=== PATIENT | male | born 1975 | race African-American/Black ===

== ENCOUNTER 2018-10-16 16:52 | Inpatient (IN) | payer MEDICAID, OTHER ==
[~2018-10-16] VITALS: Ht 175.3 cm; Wt 81.8 kg
[2018-10-16] MEDS ORDERED: DIPHTH/TET/ACEL PERTUSS (ADULT) 0.5 ML VIAL IM* ONE (17:00)
--- NOTE | 2018-10-16 17:45 | ERD ---
ER Documentation Chief Complaint Chief Complaint BIBA/LAPD; C/O suspected drug abuse/pt aggitated tased x2 versed 5mg given HPI 34-year-old unidentified male presents via EMS and police officers. It appears the patient was at a homeless encampment being verbally aggressive and threatening. When the police arrived he became aggressive and threatening towards them. A taser was discharged and the patient was extremely agitated re quiring Versed via EMS. Upon arrival the patient is sleeping. There is no report that the patient was yelling suicidal homicidal threats. Remainder of HPI is very limited. No report of trauma. ROS Altered mental status Medications Home Meds Unable to Obtain Active Prescriptions or Reported Meds Allergies Allergies: Coded Allergies: Unknown: Unable to obtain (Unverified , 10/16/18) PMhx/Soc Medical and Surgical Hx: Unable to obtain Hx Alcohol Use: No (UNK) Hx Substance Use: No (UNK) Hx Tobacco Use: No (UNK) Smoking Status: Unknown if ever smoked FmHx Family History: No diabetes Physical Exam Vitals Vital Signs Date Temp Pulse Resp B/P (MAP) Pulse Ox O2 O2 Flow FiO2 Time Delivery Rate 10/16/18 98.3 70 20 120/88 100 Room Air 20:02 (99) 10/16/18 98.9 101 20 127/89 95 17:03 (102) Physical Exam General: Disheveled, sleeping, protecting airway Head: Normocephalic, atraumatic. Eyes: Pupils equally reactive, EOM intact ENT: Moist mucous membranes Neck: Supple, no lymphadenopathy Respiratory: Lungs clear bilaterally, no distress Cardiovascular: RRR, no murmurs, rubs, or gallops Abdominal: Soft, non-tender, non-distended, no peritoneal signs : Deferred MSK: No edema, no unilateral swelling, small abrasion to the right elbow but no bony abnormality is or tenderness. Full passive range of motion Neurologic: Responsive to painful stimuli, moving all extremities. Limited exam. Skin: Small abrasion noted to the right elbow. There is a taser sheldon in the left mid thoracic back left of midline. There is a small second taser sheldon to the left superior gluteus area but stuck in the patient's close not in the skin. Psych: Unable to assess Result Diagram: 10/16/18 1706 10/16/18 1706 Results 24 hrs Laboratory Tests Test 1/25/19 17:06 White Blood Count 7.6 10^3/ul Red Blood Count 4.21 10^6/ul Hemoglobin 12.9 g/dl Hematocrit 39.4 % Mean Corpuscular Volume 93.6 fl Mean Corpuscular Hemoglobin 30.6 pg Mean Corpuscular Hemoglobin Concent 32.7 g/dl Red Cell Distribution Width 12.1 % Platelet Count 292 10^3/UL Mean Platelet Volume 9.5 fl Immature Granulocytes % 0.100 % Neutrophils % 55.3 % Lymphocytes % 26.0 % Monocytes % 8.5 % Eosinophils % 9.2 % Basophils % 0.9 % Nucleated Red Blood Cells % 0.0 /100WBC Immature Granulocytes # 0.010 10^3/ul Neutrophils # 4.2 10^3/ul Lymphocytes # 2.0 10^3/ul Monocytes # 0.7 10^3/ul Eosinophils # 0.7 10^3/ul Basophils # 0.1 10^3/ul Nucleated Red Blood Cells # 0.0 10^3/ul Sodium Level 144 mmol/L Potassium Level 4.0 mmol/L Chloride Level 108 mmol/L Carbon Dioxide Level 24 mmol/L Anion Gap 12 Blood Urea Nitrogen 19 mg/dl Creatinine 1.06 mg/dl Est Glomerular Filtrat Rate mL/min > 60 mL/min Glucose Level 88 mg/dl Calcium Level 9.2 mg/dl Total Bilirubin 0.4 mg/dl Direct Bilirubin 0.00 mg/dl Indirect Bilirubin 0.4 mg/dl Aspartate Amino Transf (AST/SGOT) 83 IU/L Alanine Aminotransferase (ALT/SGPT) 58 IU/L Alkaline Phosphatase 106 IU/L Creatine Kinase 4138 IU/L Total Protein 7.6 g/dl Albumin 4.4 g/dl Globulin 3.20 g/dl Albumin/Globulin Ratio 1.37 Ethyl Alcohol Level < 10.0 mg/dl Current Medications Medications Dose Sig/Nicolas Start Time Status Last (Trade) Ordered Route PRN Stop Time Admin Dose Reason Admin Diphtheria/ 0.5 ml ONCE ONCE 10/16/18 DC Tetanus/Acell IM* 17:00 Pertussis 10/16/18 17:01 (Adacel) Haloperidol 5 mg ONCE ONCE 10/16/18 DC 10/16/18 (Haldol) IM 20:00 19:44 10/16/18 20:01 Lorazepam 1 mg ONCE ONCE 10/16/18 DC 10/16/18 (Ativan) IM 20:00 19:44 10/16/18 20:01 Sodium 1,000 ml @ Q1H STAT 10/16/18 DC 10/16/18 Chloride 1,000 mls/hr IV 19:50 20:00 10/16/18 20:49 Ondansetron 4 mg BRIDGE ORDER 10/16/18 HCl (Zofran PRN IV 20:30 Inj) NAUSEA/VOMITI 10/17/18 20:29 NG 650 mg ER BRIDGE 10/16/18 Acetaminophen PRN PO 20:30 (Tylenol .MILD PAIN 10/17/18 20:29 Tab) 1-3 OR TEMP Sodium 1,000 ml @ Q6H40M IV 10/16/18 10/16/18 Chloride 150 mls/hr 20:25 21:20 IV Flush 3 ml PER 10/16/18 (NS 3 ml) PROTOCOL IV 20:30 Ondansetron 4 mg Q6H PRN 10/16/18 HCl (Zofran IV 20:30 Inj) NAUSEA/VOMITI NG 650 mg Q6H PRN 10/16/18 Acetaminophen PO .PAIN 1-3 20:30 (Tylenol OR TEMP Tab) Docusate 100 mg Q12H PRN 10/16/18 Sodium PO 20:30 (Colace) .CONSTIPATION Bisacodyl 5 mg DAILY PRN 10/16/18 (Dulcolax) PO 20:30 .CONSTIPATION Enoxaparin 30 mg Q24H SC 10/16/18 Sodium 21:00 (Lovenox) Lorazepam 1 mg Q2H PRN 10/16/18 (Ativan) IV 20:30 AGITATION/ANX IETY Procedures/MDM EKG, MONITORS, & DIAGNOSTIC IMAGING: EKG: I reviewed and interpreted a 12-lead EKG. Rhythm: Sinus tachycardia ST Changes: No contiguous ST segment elevations T waves: No contiguous T wave inversions Impression: No evidence of acute cardiac ischemia CT brain: No acute process per radiologist read PROCEDURES: Foreign Body Removal by me: Location: Left thoracic flank and left superior b uttock clothing Anesthesia: None required Technique: Traction was able to completely remove the taser barbs intact. No evidence of retained foreign body Complications: Neurovascularly intact post procedure Restrains: Indication: Agitation, danger to self and others Location: 4 point restraints to bilateral upper and lower extremities The patient was given verbal warnings that if the behavior continued the patient would require physical and/or chemical restraints. Despite verbal warnings the behavior continued and restraints were applied. The patient had a bedside reevaluation within 50 minutes of placement of restraints. Patient remained stable. LAB INTERPRETATION: * The patient's laboratory testing shows evidence of acute rhabdomyolysis. No evidence of renal involvement at this time. Patient will require IV fluids and admission. MEDICAL DECISION MAKING: The patient presents with acute agitation. High suspicion for likely sympathomimetic polysubstance abuse. Patient received benzodiazepine prior to arrival. He is protecting his airway. Low concern for Taser injury. The bars were removed, intact. Tetanus will be updated. Because the patient is still sleepy laboratory testing and CT imaging would be appropriate. Low concern for clinically significant traumatic brain injury. The police have released the patient from custody. The patient will require reassessment once more awake. At this time no signs or symptoms concerning for acute psychosis again likely secondary to toxicologic process such as metham phetamine ingestion. ER COURSE: * Upon arrival the patient was placed in four-point restraints as documented above. He is protecting his airway. * Taser barbs removed as documented above * Labs c/w rhabdomyolysis. IV fluids administered. Patient will be admitted. * Patient did require a dose of Haldol and Ativan because of agitation. CONSULTATION: None DISPOSITION PLAN: Accepting care team and consultations: I discussed the current laboratory data, diagnostic imaging and emergency care provided. Admitting team: Dr. Stover Admitting team indication: Insurance directed Departure Diagnosis: Primary Impression: Rhabdomyolysis Rhabdomyolysis type: non-traumatic Qualified Codes: M62.82 - Rhabdomyolysis Additional Impressions: Polysubstance abuse Agitation Condition: Stable JORDY SOTO MD Oct 16, 2018 17:45
[2018-10-16] MEDS ORDERED: SOD CHLORIDE 0.9% 1,000 ML IV STA (19:50)
[2018-10-16] MEDS ORDERED: HALOPERIDOL 5 MG INJ IM ONE (20:00)
[2018-10-16] MEDS ORDERED: LORAZEPAM 2 MG INJ IM ONE (20:00)
[2018-10-16] MEDS ORDERED: LORAZEPAM 2 MG INJ IV PRN (20:30)
[2018-10-16] MEDS ORDERED: DOCUSATE SODIUM 100 MG CAP PO PRN (20:30)
[2018-10-16] MEDS ORDERED: NACL 0.9% 3 ML SYG IV SCH (20:30)
[2018-10-16] MEDS ORDERED: BISACODYL (EC) 5 MG TAB PO PRN (20:30)
[2018-10-16] MEDS ORDERED: ONDANSETRON 4 MG INJ IV PRN ×2 (20:30)
[2018-10-16] MEDS ORDERED: ACETAMINOPHEN 325 MG TAB PO PRN ×2 (20:30)
--- NOTE | 2018-10-16 20:32 | HP ---
Date/Time of Note Date/Time of Note DATE: 10/16/18 TIME: 20:32 Assessment/Plan VTE Prophylaxis Pharmacological prophylaxis: LMWH Lines/Catheters IV [facility] Saline Lock Assessment/Plan Hospital Course This is a 34-year-old [facility]: #1 acute encephalopathy: Likely multifactorial secondary to suspected drug use, and secondary to being tased and giving sedatives. At the current time will monitor patient closely. Will avoid any further sedative medications at this time, however given patient's possible history of drug use if patient is noted to be aggressive or agitated upon awakening will need to consider Ativan/Haldol. Ethanol level less than 10, will await urine drug screen result. assessment services manager consult. SW #2 rhabdomyolysis: Etiology possibly secondary to being tased and possible drug use. Patient's blood alcohol level is less than 10. Will provide aggressive IV fluid hydration with normal saline. Monitor CK levels. Kidney function at the current time appears normal. Will repeat renal function test in the a.m. #3 DVT GI prophylaxis: Lovenox, no GI prophylaxis indicated Further treatment strategy will be implemented as per clinical course. Result Diagram: 10/16/18 1706 10/16/18 1706 Results 24hrs Laboratory Tests Test 10/16/18 17:06 White Blood Count 7.6 Red Blood Count 4.21 L Hemoglobin 12.9 L Hematocrit 39.4 L Mean Corpuscular Volume 93.6 Mean Corpuscular Hemoglobin 30.6 Mean Corpuscular Hemoglobin Concent 32.7 Red Cell Distribution Width 12.1 Platelet Count 292 Mean Platelet Volume 9.5 Immature Granulocytes % 0.100 Neutrophils % 55.3 Lymphocytes % 26.0 Monocytes % 8.5 Eosinophils % 9.2 H Basophils % 0.9 Nucleated Red Blood Cells % 0.0 Immature Granulocytes # 0.010 Neutrophils # 4.2 Lymphocytes # 2.0 Monocytes # 0.7 Eosinophils # 0.7 H Basophils # 0.1 Nucleated Red Blood Cells # 0.0 Sodium Level 144 Potassium Level 4.0 Chloride Level 108 Carbon Dioxide Level 24 Anion Gap 12 Blood Urea Nitrogen 19 Creatinine 1.06 Est Glomerular Filtrat Rate mL/min > 60 Glucose Level 88 Calcium Level 9.2 Total Bilirubin 0.4 Direct Bilirubin 0.00 Indirect Bilirubin 0.4 Aspartate Amino Transf (AST/SGOT) 83 H Alanine Aminotransferase (ALT/SGPT) 58 Alkaline Phosphatase 106 Creatine Kinase 4138 H Total Protein 7.6 Albumin 4.4 Globulin 3.20 Albumin/Globulin Ratio 1.37 Ethyl Alcohol Level < 10.0 H HPI/ROS Admit Date/Time Admit Date/Time Hx of Present Illness BIBA/LAPD; C/O suspected drug abuse/pt aggitated tased x2 versed 5mg given The following history was obtained from the ED physician documentation as patient was sedated when I evaluated the patient. Patient apparently is a homeless male who was being verbally aggressive and threatening at the homeless retirement apparently that he was at. [employer] and EMS were responding to the situation and patient was tasered and patient was extremely agitated and he required Versed via the EMS. When he arrived to the emergency department he was sleeping. There was not reports of any suicidal or homicidal threats. It was suspected that the patient likely was under the influence of drugs. Upon my ex amination the patient at the bedside the patient was still sedated but in no distress. Further history Allergies: Unknown, unable to obtain secondary to patient being sedated Medications:Unknown, unable to obtain secondary to patient being sedated ROS Subjective hx not possible: other (Unknown, unable to obtain secondary to patient being sedated) PMH/Family/Social Past Medical History Unknown, unable to obtain secondary to patient being sedated Medications Current Medications Sodium Chloride 1,000 ml @ 1,000 mls/hr Q1H STAT IV Last administered on 10/16/18at 20:00; Admin Dose 1,000 MLS/HR; Start 10/16/18 at 19:50; Stop 10/16/18 at 20:49 Ondansetron HCl (Zofran Inj) 4 mg BRIDGE ORDER PRN IV NAUSEA/VOMITING; Start 10/16/18 at 20:30; Stop 10/17/18 at 20:29 Acetaminophen (Tylenol Tab) 650 mg ER BRIDGE PRN PO .MILD PAIN 1-3 OR TEMP; Start 10/16/18 at 20:30; Stop 10/17/18 at 20:29 Sodium Chloride 1,000 ml @ 150 mls/hr Q6H40M IV ; Start 10/16/18 at 20:25; Status UNV IV Flush (NS 3 ml) 3 ml PER PROTOCOL IV ; Start 10/16/18 at 20:30; Status UNV Ondansetron HCl (Zofran Inj) 4 mg Q6H PRN IV NAUSEA/VOMITING; Start 10/16/18 at 20:30; Status UNV Acetaminophen (Tylenol Tab) 650 mg Q6H PRN PO .PAIN 1-3 OR TEMP; Start 10/16/18 at 20:30; Status UNV Docusate Sodium (Colace) 100 mg Q12H PRN PO .CONSTIPATION; Start 10/16/18 at 20:30; Status UNV Bisacodyl (Dulcolax) 5 mg DAILY PRN PO .CONSTIPATION; Start 10/16/18 at 20:30; Status UNV Enoxaparin Sodium (Lovenox) 30 mg DAILY SC ; Start 10/16/18 at 20:30; Status UNV Lorazepam (Ativan) 1 mg Q2H PRN IV AGITATION/ANXIETY; Start 10/16/18 at 20:30; Status UNV Coded Allergies: Unknown: Unable to obtain (Unverified , 10/16/18) Past Surgical History Unknown, unable to obtain secondary to patient being sedated Family History Significant Family History: other (Unknown, unable to obtain secondary to patient being sedated) Social History Unknown, unable to obtain secondary to patient being sedated Smoking Status: Unknown if ever smoked Exam/Review of Systems Vital Signs Vitals Vital Signs Date Temp Pulse Resp B/P (MAP) Pulse Ox O2 O2 Flow FiO2 Time Delivery Rate 10/16/18 98.3 70 20 120/88 100 Room Air 20:02 (99) Exam Exam General: Patient is currently sedated, sleeping does not appear to be in any acute distress HEENT: Atraumatic, normocephalic. The pupils are equal, round and reactive. Extraocular motor are intact Neck: Supple with full range of motion. No rigidity or meningismus Chest: Nontender Lungs: Clear to auscultation bilaterally no crackles rales or wheezing Heart: Normal S1-S2, Regular rhythm and rate. No overt murmurs appreciated auscultation Abdomen: Soft , nontender, nondistended , bowel sounds are present. No guarding no rebound tenderness , No masses or organomegaly. No costovertebral temporal angle mass Extremities: Normal to inspection, no edema no cyanosis Neurologic: Currently sedated after being tased and given Versed, neurological exam severely limited given his sedation. DOTTIE PARADA Oct 16, 2018 20:32
[2018-10-16] MEDS: ENOXAPARIN 30 MG/0.3 ML SYG SC SCH (21:00)
[2018-10-16] MEDS: SOD CHLORIDE 0.9% 1,000 ML IV SCH (21:20)
[2018-10-16 23:09] VITALS: BP 121/62; PULSE 78; RESP 20
--- NOTE | 2018-10-16 23:21 | NUR ---
Pt arrived on unit at 2300 via gurney. Pt sleeping and difficult to arouse. Pt has harjeetet, counted money with RN, Ty. Unable to obtain any information from pt. VSS.
[2018-10-17 01:10] VITALS: Ht 175.3 cm; Wt 81.8 kg
[2018-10-17 01:50] VITALS: BP 123/73; PULSE 83; RESP 20
[2018-10-17] MEDS: SOD CHLORIDE 0.9% 1,000 ML IV SCH ×7 (03:05→23:05)
--- NOTE | 2018-10-17 05:54 | NUR ---
EOSS Pt remained asleep and difficult to wake. Unable to assess. IVF maintained. Hourly rounding done. Bed left in lowest position with bed alarm on. Call light left within reach. Will endorse to next shift.
[2018-10-17 08:00] VITALS: BP 115/79; PULSE 68; RESP 18
--- NOTE | 2018-10-17 11:09 | NUR ---
Noted that patient just woke up. During handoff, previous nurse mentioned he was given Versed in ER and patient has been sleeping since 11pm. No assessments done due to pt's current status. Introduced myself and Annalee mariee RN. I went to go get water for the patient and when I came back, pt was not in his room. Notified security. Knocked on the visitors restroom, I asked "Are you a patient?" Pt said yes and after a few minutes, he went back to his room. probably unaware where his restroom is. Pt aware of his name, date of and where he is right now (in a hospital) but he said he does not know WHY he is here. Oriented pt to bed alarm, call light. Instructed pt to call for assistance. Made sure I'm coming in with another person for safety purposes. When asked what was the last thing pt remembers, he said "Somebody called the police." Pt put his name on a paper.
[2018-10-17 14:00] VITALS: BP 115/71; PULSE 62; RESP 16
--- NOTE | 2018-10-17 14:43 | PN ---
Date/Time of Note Date/Time of Note DATE: 10/17/18 TIME: 14:40 Assessment/Plan VTE Prophylaxis SCD applied (from Nsg): Yes Pharmacological prophylaxis: LMWH Lines/Catheters IV Catheter Type (from Nrsg): Peripheral IV Assessment/Plan Assessment/Plan 34 yo homeless man admitted after altercation with the police. # acute encephalopathy: Likely multifactorial secondary to suspected drug use, and secondary to being tased and giving sedatives. At the current time will monitor patient closely. Will avoid any further sedative medications at this time, however given patient's possible history of drug use if patient is noted to be aggressive or agitated upon awakening will need to consider Ativan/Haldol. Ethanol level less than 10, will await urine drug screen result. nutritional services cook consult. SW # rhabdomyolysis: Etiology possibly secondary to being tased and possible drug use. Patient's blood alcohol level is less than 10. Will provide aggressive IV fluid hydration with normal saline. Monitor CK levels. Kidney function at the current time appears normal. Renal function improving. # DVT GI prophylaxis: Lovenox, no GI prophylaxis indicated Result Diagram: 10/17/18 0648 10/17/18 0648 Results 24hrs Laboratory Tests Test 10/16/18 17:06 10/17/18 06:48 White Blood Count 7.6 5.8 # Red Blood Count 4.21 L 4.24 L Hemoglobin 12.9 L 12.9 L Hematocrit 39.4 L 40.2 L Mean Corpuscular Volume 93.6 94.8 Mean Corpuscular Hemoglobin 30.6 30.4 Mean Corpuscular Hemoglobin Concent 32.7 32.1 Red Cell Distribution Width 12.1 12.4 Platelet Count 292 269 Mean Platelet Volume 9.5 9.3 Immature Granulocytes % 0.100 0.200 Neutrophils % 55.3 50.0 Lymphocytes % 26.0 27.5 Monocytes % 8.5 7.3 Eosinophils % 9.2 H 14.1 H Basophils % 0.9 0.9 Nucleated Red Blood Cells % 0.0 0.0 Immature Granulocytes # 0.010 0.010 Neutrophils # 4.2 2.9 Lymphocytes # 2.0 1.6 Monocytes # 0.7 0.4 Eosinophils # 0.7 H 0.8 H Basophils # 0.1 0.1 Nucleated Red Blood Cells # 0.0 0.0 Sodium Level 144 142 Potassium Level 4.0 4.0 Chloride Level 108 111 H Carbon Dioxide Level 24 25 Anion Gap 12 6 Blood Urea Nitrogen 19 16 Creatinine 1.06 0.93 Est Glomerular Filtrat Rate mL/min > 60 > 60 Glucose Level 88 75 Calcium Level 9.2 8.6 Total Bilirubin 0.4 1.1 Direct Bilirubin 0.00 0.00 Indirect Bilirubin 0.4 1.1 Aspartate Amino Transf (AST/SGOT) 83 H 76 H Alanine Aminotransferase (ALT/SGPT) 58 52 Alkaline Phosphatase 106 94 Creatine Kinase 4138 H 2782 H Total Protein 7.6 6.5 # Albumin 4.4 3.7 Globulin 3.20 2.80 Albumin/Globulin Ratio 1.37 1.32 Ethyl Alcohol Level < 10.0 H Hemoglobin A1c 5.2 Magnesium Level 2.2 Triglycerides Level 44 Cholesterol Level 164 LDL Cholesterol, Calculated 86 HDL Cholesterol 69 H Cholesterol/HDL Ratio 2.3 Thyroid Stimulating Hormone (TSH) 0.159 L Subjective 24 Hr Interval Summary Free Text/Dictation No acute overnight events. Patient ambulated to restroom today. Says his name is Arias Arreaga, oriented to location, year, month. Still very lethargic and somnolent. Exam/Review of Systems Exam Vitals Vital Signs Date Temp Pulse Resp B/P (MAP) Pulse Ox O2 O2 Flow FiO2 Time Delivery Rate 10/17/18 97.9 68 18 115/79 98 08:00 (91) 10/16/18 Room Air 22:42 Exam General: Well developed man sleeping comfortably in bed. HEENT: Atraumatic, normocephalic. No scleral icterus or erythema. Neck: Supple with full range of motion. No rigidity or meningismus Chest: Nontender Lungs: Clear to auscultation bilaterally no crackles rales or wheezing Heart: Normal S1-S2, Regular rhythm and rate. No overt murmurs appreciated auscultation Abdomen: Soft , nontender, nondistended Extremities: Normal to inspection, no edema no cyanosis Neurologic: Lethargic. But arousable and oriented to name (although unable to verify), location, year, month Results Results 24hrs Laboratory Tests Test 10/16/18 17:06 10/17/18 06:48 White Blood Count 7.6 5.8 # Red Blood Count 4.21 L 4.24 L Hemoglobin 12.9 L 12.9 L Hematocrit 39.4 L 40.2 L Mean Corpuscular Volume 93.6 94.8 Mean Corpuscular Hemoglobin 30.6 30.4 Mean Corpuscular Hemoglobin Concent 32.7 32.1 Red Cell Distribution Width 12.1 12.4 Platelet Count 292 269 Mean Platelet Volume 9.5 9.3 Immature Granulocytes % 0.100 0.200 Neutrophils % 55.3 50.0 Lymphocytes % 26.0 27.5 Monocytes % 8.5 7.3 Eosinophils % 9.2 H 14.1 H Basophils % 0.9 0.9 Nucleated Red Blood Cells % 0.0 0.0 Immature Granulocytes # 0.010 0.010 Neutrophils # 4.2 2.9 Lymphocytes # 2.0 1.6 Monocytes # 0.7 0.4 Eosinophils # 0.7 H 0.8 H Basophils # 0.1 0.1 Nucleated Red Blood Cells # 0.0 0.0 Sodium Level 144 142 Potassium Level 4.0 4.0 Chloride Level 108 111 H Carbon Dioxide Level 24 25 Anion Gap 12 6 Blood Urea Nitrogen 19 16 Creatinine 1.06 0.93 Est Glomerular Filtrat Rate mL/min > 60 > 60 Glucose Level 88 75 Calcium Level 9.2 8.6 Total Bilirubin 0.4 1.1 Direct Bilirubin 0.00 0.00 Indirect Bilirubin 0.4 1.1 Aspartate Amino Transf (AST/SGOT) 83 H 76 H Alanine Aminotransferase (ALT/SGPT) 58 52 Alkaline Phosphatase 106 94 Creatine Kinase 4138 H 2782 H Total Protein 7.6 6.5 # Albumin 4.4 3.7 Globulin 3.20 2.80 Albumin/Globulin Ratio 1.37 1.32 Ethyl Alcohol Level < 10.0 H Hemoglobin A1c 5.2 Magnesium Level 2.2 Triglycerides Level 44 Cholesterol Level 164 LDL Cholesterol, Calculated 86 HDL Cholesterol 69 H Cholesterol/HDL Ratio 2.3 Thyroid Stimulating Hormone (TSH) 0.159 L Medications Medication Current Medications Ondansetron HCl (Zofran Inj) 4 mg BRIDGE ORDER PRN IV NAUSEA/VOMITING; Start 10/16/18 at 20:30; Stop 10/17/18 at 20:29 Acetaminophen (Tylenol Tab) 650 mg ER BRIDGE PRN PO .MILD PAIN 1-3 OR TEMP; Start 10/16/18 at 20:30; Stop 10/17/18 at 20:29 Sodium Chloride 1,000 ml @ 150 mls/hr Q6H40M IV Last administered on 10/17/18at 12:29; Admin Dose 150 MLS/HR; Start 10/16/18 at 20:25 IV Flush (NS 3 ml) 3 ml PER PROTOCOL IV ; Start 10/16/18 at 20:30 Ondansetron HCl (Zofran Inj) 4 mg Q6H PRN IV NAUSEA/VOMITING; Start 10/16/18 at 20:30 Acetaminophen (Tylenol Tab) 650 mg Q6H PRN PO .PAIN 1-3 OR TEMP; Start 10/16/18 at 20:30 Docusate Sodium (Colace) 100 mg Q12H PRN PO .CONSTIPATION; Start 10/16/18 at 20:30 Bisacodyl (Dulcolax) 5 mg DAILY PRN PO .CONSTIPATION; Start 10/16/18 at 20:30 Enoxaparin Sodium (Lovenox) 30 mg Q24H SC ; Start 10/16/18 at 21:00 Lorazepam (Ativan) 1 mg Q2H PRN IV AGITATION/ANXIETY; Start 10/16/18 at 20:30 NEELIMA MUNIZ MD Oct 17, 2018 14:43
--- NOTE | 2018-10-17 15:58 | NUR ---
Made an assessment with Annalee RANDLE. Pt was drowsy and sleeping for the most part. Pt consented to admission pictures. We were able to take pictures of the sacrum and heels. Lung sounds clear, bowel sounds active. Pt selectively answered questions and drifted back to sleep.
--- NOTE | 2018-10-17 18:19 | NUR ---
END OF SHIFT NOTES: PT STABLE, ALERT & ORIENTED X2. NO DISTRESS NOTED. PT DROWSY AND SLEEPING FOR MOST PART OF THE SHIFT. MAINTAINED ON IV HYDRATION. NO AGGRESSION NOTED DURING THIS SHIFT. INSTRUCTED PT TO CALL FOR ASSISTANCE. VS WNL.HOURLY ROUNDING. CALL LIGHT WITHIN REACH.ALL NEEDS MET. NO NEW COMPLAINTS
[2018-10-17 19:37] VITALS: BP 105/55; PULSE 87; RESP 18
[2018-10-17] MEDS: ENOXAPARIN 30 MG/0.3 ML SYG SC SCH (20:49)
[2018-10-18] MEDS: SOD CHLORIDE 0.9% 1,000 ML IV SCH ×3 (01:50→12:25)
[2018-10-18 02:00] VITALS: BP 116/70; PULSE 56; RESP 18
--- NOTE | 2018-10-18 06:02 | NUR ---
EOSS: Pt. kept comfortable overnight. Pt. slept for most of the shift. Pt. is confused and pulled out his IV getting out of bed since he is always connected to the IV. New IV was started and IV is infusing. No aggression noted this shift. Pt. was calm and resting. Bed alarm is on at all times. Pt. free from injury. Will endorse care to oncoming nurse
[2018-10-18 08:12] VITALS: BP 113/77; PULSE 65; RESP 16
--- NOTE | 2018-10-18 13:14 | PN ---
Date/Time of Note Date/Time of Note DATE: 10/18/18 TIME: 13:11 Assessment/Plan VTE Prophylaxis Risk score (from Ns)>0 risk: 2 SCD applied (from Ns): Yes Pharmacological prophylaxis: NA/contraindicated Pharm contraindication: low risk/ambulating Lines/Catheters IV [facility]from [facility] Peripheral IV Assessment/Plan Assessment/Plan 34 yo homeless man admitted after altercation with the police. # acute encephalopathy: resolved. - Likely multifactorial secondary to suspected drug use, and secondary to being tased and giving sedatives. # rhabdomyolysis: resolving. - Etiology possibly secondary to being tased and possible drug use. # DVT GI prophylaxis: Lovenox, no GI prophylaxis indicated Dispo: Patient medically clear to go. Pending social work evaluation and resources. Result Diagram: 10/17/18 0648 10/17/18 0648 Results 24hrs Laboratory Tests Test 10/18/18 01:20 10/18/18 06:34 Urine Opiates Screen Negative Urine Barbiturates Negative Urine Amphetamines Screen Positive Urine Benzodiazepines Screen Negative Urine Cocaine Screen Negative Urine Cannabinoids Negative Creatine Kinase 1486 H Subjective 24 Hr Interval Summary Free Text/Dictation Patient is comfortably appearing. Awake, alert answering questions appropriat ana luisa. He recalls being tased. Oriented to name, location, time. He requests to talk to a social sciences research scientist before discharge. Exam/Review of Systems Exam Vitals Vital Signs Date Temp Pulse Resp B/P (MAP) Pulse Ox O2 O2 Flow FiO2 Time Delivery Rate 10/18/18 97.4 65 16 113/77 98 Room Air 08:12 (89) Intake and Output 10/17/18 10/17/18 10/18/18 1414:59 22:59 06:59 IntakeIntake Total 1600 ml 1360 ml 1600 ml BalanceBalance 1600 ml 1360 ml 1600 ml Exam General: Well developed man awake, lying comfortably in bed HEENT: Atraumatic, normocephalic. No scleral icterus or erythema. Neck: Supple with full range of motion. No rigidity or meningismus Chest: Nontender Lungs: Clear to auscultation bilaterally no crackles rales or wheezing Heart: Normal S1-S2, Regular rhythm and rate. No overt murmurs appreciated auscultation Abdomen: Soft , nontender, nondistended Extremities: Normal to inspection, no edema no cyanosis Results Results 24hrs Laboratory Tests Test 10/18/18 01:20 10/18/18 06:34 Urine Opiates Screen Negative Urine Barbiturates Negative Urine Amphetamines Screen Positive Urine Benzodiazepines Screen Negative Urine Cocaine Screen Negative Urine Cannabinoids Negative Creatine Kinase 1486 H Medications Medication Current Medications Sodium Chloride 1,000 ml @ 150 mls/hr Q6H40M IV Last administered on 10/18/18at 12:25; Admin Dose 150 MLS/HR; Start 10/16/18 at 20:25 IV Flush (NS 3 ml) 3 ml PER PROTOCOL IV ; Start 10/16/18 at 20:30 Ondansetron HCl (Zofran Inj) 4 mg Q6H PRN IV NAUSEA/VOMITING; Start 10/16/18 at 20:30 Acetaminophen (Tylenol Tab) 650 mg Q6H PRN PO .PAIN 1-3 OR TEMP; Start 10/16/18 at 20:30 Docusate Sodium (Colace) 100 mg Q12H PRN PO .CONSTIPATION; Start 10/16/18 at 20:30 Bisacodyl (Dulcolax) 5 mg DAILY PRN PO .CONSTIPATION; Start 10/16/18 at 20:30 Enoxaparin Sodium (Lovenox) 30 mg Q24H SC ; Start 10/16/18 at 21:00 Lorazepam (Ativan) 1 mg Q2H PRN IV AGITATION/ANXIETY; Start 10/16/18 at 20:30 NEELIMA MUNIZ MD Oct 18, 2018 13:14
[2018-10-18 14:00] VITALS: BP 125/68; PULSE 68
--- NOTE | 2018-10-18 14:57 | NUR ---
SW Note: Referral received stating patient is homeless with a hx of drug use. Patient is a 34 y.o. male BIB [employer] after was verbally aggressive and threatening at the [facility]. [employer] and EMS were responding to the situation and patient was tased . It was suspected that the patient likely was under the influence of drugs, however topology at [facility] on 10/18/18 is negative. SW met with the patient at bedside. Pt A&OX4 and cooperative with minimal participation. Pt has been [facility]. Pt was supposed to reside with his mother in [place] after his release from [facility] but decided that he did not wish to stay with his mother. Pt has instead been couch surfing in the [place] area. Pt states that he has a hx of meth use, but would not disclose the last time he used. SW discussed and provided homeless resources as well as drug treatment resources. Pt reports that he is unsure where he will stay at discharge. SW explained that this commercial real estate underwriter can assist him in locating another fci as he will likely not be able to return to the [facility] he [facility] previously. Pt to look over the resources provided by [facility]. SW to remain available. [facility] spoke with bedside RN whom is aware that the patient will review the resources provided. Per RN, patient will not be discharging today.
--- NOTE | 2018-10-18 18:34 | NUR ---
END OF SHIFT SUMMARY Pt alert and oriented, Iv NS hung until discontinued earlier today. New IV inserted, left forearm. No acute distress noted. Pt ate all meals, slept most of the day. black ash worker already saw pt and gave resources. Will continue to monitor pt and endorse new plan of care accordingly.
[2018-10-18 20:00] VITALS: BP 117/80; PULSE 67; RESP 18
[2018-10-18] MEDS: ENOXAPARIN 30 MG/0.3 ML SYG SC SCH (20:16)
[2018-10-19 02:00] VITALS: BP 116/73; PULSE 65; RESP 19
--- NOTE | 2018-10-19 06:35 | NUR ---
EOSS No acute changes in patient's condition. A&Ox4. All due meds given. Pt denies pain. Pt medically cleared for discharge per MD. Bed left in lowest position. Call light left within reach.
[2018-10-19 07:30] VITALS: BP 111/62; PULSE 69; RESP 17
[2018-10-19 14:30] VITALS: BP 114/59; PULSE 79; RESP 19
--- NOTE | 2018-10-19 16:08 | NUR ---
SS NOTE: F/U RE: D/C SW MET WITH PT AT BEDSIDE TO DISCUSS D/C AND PROVIDE RESOURCES. PT IS 43 YR OLD MALE ADMITTED FOR RHABDOMYOLYSIS, PT APPEARED TO BE A&OX4 AND COPING APPROPRIATELY WITH ADMISSION. PT WAS ASSESSED BY JOSH LEO ON 10/18 (PLEASE REFER TO NOTE) FOR HOMELESS RESOURCES. SW DISCUSSED AND PT DECLINED PLACEMENT AT INDEPENDENT LIVING FACILITIES OR SOBER LIVING FACILITIES. PT DECLINED [facility] PLACEMENT RESOURCES. PT STATED THAT HIS PLAN IS TO STAY WITH HIS FRIEND NANCY (PT DECLINED TO PROVIDE CONTACT INFORMATION). PT STATED THAT HE WILL MEET HIS FRIEND AT A LOCATION WITHIN WALKING DISTANCE FROM [facility]. SW DISCUSSED [facility] BACK UP PLAN FOR THE PT. [facility] INSTRUCTIONS WERE PROVIDED INCLUDING INSTRUCTIONS IF NEEDED FOR THE PT TO GO TO THE [facility]INT LOCATED AT [facility] ([address] [address]) AT THE PICKUP TIMES LISTED-5:15pm, 5:45pm, 6:15pm, 7:15pm, 8:15pm. INSTRUCTION WERE NOT TO CONTACT THE [facility] DIRECTLY. \ PT WAS PROVIDED A MEAL. SW DISCUSSED AND PROVIDED RESOURCES FOR LOCATING A PCP THROUGH [facility] PT IS CURRENTLY SELF PAY. PT WAS REFERRED TO [facility] FINANCIAL COUNSELOR FOR MED-REDD APPLICATION INSURANCE PROGRAM. SW DISCUSSED AND PROVIDED RESOURCES FOR F/U MEDICAL CARE AND F/U BEHAVIORAL/MENTAL HEALTH CARE. PSW DISCUSSED AND PROVIDED CONTACTS FOR [address] [place] [address]. SW DISCUSSED NEGATIVE HEALTH CONSEQUENCES OF CONTINUED METHAMPHETAMINE ABUSE. SW PROVIDED METHAMPHETAMINE EDUCATION MATERIALS AND PROVIDED RESOURCES FOR SUBSTANCE ABUSE REHABILITATION CENTERS. PT WAS PROVIDED CONTACT RESOURCES FOR [facility] PROGRAM FOR FURTHER ASSISTANCE WITH MENTAL HEALTH, SUBSTANCE ABUSE RECOVERY AND HOUSING PLACEMENT. WEATHER APPROPRIATE CLOTHING (INCLUDING SHIRT AND PANTS) WERE PROVIDED. PT'S RN DISCUSSED AND EDUCATED PT ON D/C INSTRUCTIONS. PLAN IS FOR PT TO GO TO THIS FRIEND'S HOME. PT STATED THAT HE WILL F/U WITH [facility]. PT SIGNED THE HOMELESS DISCHARGE CONSENT FORM AND ORIGINAL WAS PLACED IN THE PATIENT'S CHART. SW REMAINS AVAILABLE FOR F/U NEEDED.
--- NOTE | 2018-10-19 16:31 | PDOCDIS ---
Discharge Instructions CONDITION [id number] Patient Condition: [id number] Stable HOME CARE INSTRUCTIONS: [id number] Diet Instructions: [id number] Low Fat /Cholesterol ACTIVITY: [id number] Activity Restrictions: [id number] Slowly Increase Activity Rest between Activity Avoid heavy lifting FOLLOW UP/APPOINTMENTS Follow-up Plan Remember to keep yourself well-hydrated, if you experience any muscle pain or cramps or soreness, please call your primary care doctor, 911, or go to ER. Please follow-up with your regular doctor in the clinic in the next 1-2 weeks. GEORGIA MCGEE Oct 19, 2018 16:31
--- NOTE | 2018-10-19 16:36 | DS ---
Date/Time of Note Date/Time of Note DATE: 10/19/18 TIME: 16:33 Discharge Summary Admission/Discharge Info Admit Date/Time Oct 16, 2018 at 20:17 Discharge Date/Time Discharge Diagnosis # acute encephalopathy: Likely multifactorial secondary to suspected drug use, and secondary to being tased and giving sedatives-resolved now # rhabdomyolysis: Resolving now, etiology possibly secondary to being tased and possible drug use. Patient's blood alcohol level is less than 10. Patient Condition: Stable Hx of Present Illness Patient apparently is a homeless male who was being verbally aggressive and threatening at the [facility]. [employer] and EMS were responding to the situation and patient was tasered and patient was extremely agitated and he required Versed via the EMS. When he arrived to the emergency department he was sleeping. There was not reports of any suicidal or homicidal threats. It was suspected that the patient likely was under the influence of drugs. Upon admitting doctors examination the patient at the bedside the patient was still sedated but in no distress. Hospital Course So patient was admitted, he was found with acute encephalopathy likely multifactorial secondary to suspected drug use, and secondary to being tased and giving sedatives. Patient was also given aggressive IV fluid hydration given his signs of rhabdomyolysis. His CK levels were trended and they were trending down by the time of discharge. Eventually the patient's encephalopathy resolved, he was able to eventually wake up, became more alert, vital signs became more stable. He spoke with nephrology social worker regarding social issues including homelessness. He was able to ambulate, tolerated p.o. diet. Patient will be discharged home today in improved condition. See below for full list of discharge medications. Home Meds Unable to Obtain Active Prescriptions or Reported Meds Follow-up Plan Remember to keep yourself well-hydrated, if you experience any muscle pain or cramps or soreness, please call your primary care doctor, 911, or go to ER. Please follow-up with your regular doctor in the clinic in the next 1-2 weeks. Primary Care Provider Care Physician No Primary Time spent on discharge: > 30 minutes Pending Labs Laboratory Tests Test 10/19/18 05:57 Creatine Kinase 1227 IU/L (23-200) GEORGIA MCGEE Oct 19, 2018 16:36
--- NOTE | 2018-10-19 17:41 | NUR ---
Discharge summary At 1730, pt discharged to home in stable condition: vital signs within normal range, no complaint of pain/discomfort. Discharge teaching given to pt, no question/concern expressed at this time. All belongings with pt, including his wallet. Jacket and sandals given to pt upon discharge. Bus token given to pt.
== END 2018-10-19 17:40 | disposition home or self-care (01) | DRG 557 ==
LOC: E/R 16:52 → EDBD 20:17 → 5EC 20:17 → EDBEDREQ 20:21
PROVIDERS: ADMIT Family Medicine; ATTEND Hospitalist
DX: M62.82 Rhabdomyolysis (principal); G92 Toxic encephalopathy; Y35.891A Legal intervention involving other specified means, law enforcement official injured, initial encounter; Z59.0 Homelessness
CPT/HCPCS: 36415; 70450; 80053; 80061; 80307; 82550; 83036; 83735; 84443; 85025; 93005; 96372; J1630; J1650; J2060; J7030; L3260